=== PATIENT | male | born 1965 | race Caucasian/White ===

== ENCOUNTER 2018-05-29 08:49 | Emergency (ER) | payer OTHER ==
[~2018-05-29] VITALS: Ht 180.3 cm; Wt 76.2 kg
--- NOTE | 2018-05-29 09:17 | PHYS DOC ---
Adult General Chief Complaint Chief Complaint: HEAD INJURY/TRAUMA HPI HPI 52-year-old male presents to ER via POV following a mechanical fall this morning. Patient reports he was walking when he slipped on the ice causing him to fall backwards. Patient reports he struck the back of his head denies any loss of consciousness. He reports he has CASTANEDA denies tinnitis. He reports he felt dizzy after the fall which has since subsided. He denies nausea and has had no vomiting episode. Pt's family reports pt has had issues with repetitive questions and some forgetfulness- they report pt is NL on MS. Review of Systems Review of Systems Constitutional: Denies lethargy. Eyes: Denies change in visual acuity or eye pain [] HENT: Reports posterior head pain. Reports sinus congestion which had been occurring prior to fall- denies nosebleed Respiratory: Denies cough or shortness of breath [] Cardiovascular: Denies CP GI: Denies abdominal pain, nausea, vomiting : Denies dysuria or hematuria. Denies incontinence of bowel/bladder Musculoskeletal: Denies joint pain. Reports lt upper back pain just above scapula. Reports mid neck pain. Denies extremity pain Integument: Denies abrasions/lacerations/bruising Neurologic: Denies focal weakness or sensory changes. Denies dizziness. Pt's family denies pt with confusion/change in MS- they report pt has been "foggy" on recollection of events after fall. They report pt had some confusion on answers but feel pt has been NL on MS All other systems were reviewed and found to be within normal limits, except as documented in this note. Current Medications Current Medications Current Medications Medications (Trade) Dose Ordered Sig/Rose Start Time Stop Time Status Last Admin Dose Admin Acetaminophen (Tylenol) 1,000 mg 1X ONCE 05/29/18 10:15 05/29/18 10:16 DC 05/29/18 10:39 1,000 MG Methocarbamol (Robaxin) 750 mg 1X ONCE 05/29/18 11:00 05/29/18 11:01 DC 05/29/18 10:45 750 MG Oxymetazoline HCl (Afrin) 2 spray 1X ONCE 05/29/18 11:15 05/29/18 11:16 DC 05/29/18 11:22 2 SPRAY Allergies Allergies Allergies Coded Allergies Type Severity Reaction Last Updated Verified No Known Drug Allergies 05/29/18 No Physical Exam Physical Exam Constitutional: Well developed, well nourished, no acute distress, non-toxic appearance. Clear speech HENT: Normocephalic, tender to palp. posterior head- no visible injury/swelling/ ecchymosis, bilateral external ears normal, oropharynx moist, no oral injury, nose normal. [] Eyes: 3mm PERRLA, EOMI- no pain with eye movements, no nystagmus, conjunctiva normal, no discharge. [] Neck: Tender to palp. mid CSpine with no palp. deformity/step off- with this finding on initial exam pt had CCollar applied and CSpine precautions initiated , supple, no stridor. Trachea midline Cardiovascular: Heart rate regular rhythm, no murmur [] Lungs & Thorax: Bilateral breath sounds clear to auscultation. Resp. equal/ nonlabored. No chest wall tenderness Abdomen: Bowel sounds normal, soft, no tenderness Skin: Warm, dry Back: Tender to palp. lt upper back above scapula- no visible injury/deformity/ crepitus. No midline spinal tenderness/palp. deformity- full ROM, no CVA tenderness. Extremities: Pelvis stable/nontender. No tenderness, no cyanosis, no clubbing, ROM intact, no edema. No tenderness on palp. of coccyx Neurologic: Alert and oriented X 3, normal motor function, normal sensory function, no focal deficits noted. Layboy Tender equal Psychologic: Affect normal, judgement normal, mood normal. [] Current Patient Data Vital Signs EKG EKG [] Radiology/Procedures Radiology/Procedures PROCEDURE: SCAPULA LEFT Examination: CHEST AP ONLY, SCAPULA LEFT History: UPPER BACK PAIN FELL BACKWARDS ON ICE Comparison/Correlation: None Findings: Portable upright frontal view of the chest was obtained. Frontal view of the left scapula and scapular Y view were provided. Left costophrenic angle was not fully included limiting assessment. Heart size and pulmonary vasculature are normal. No infiltrate or effusion. Bony structures are unremarkable. No fracture or bony destruction. No pneumothorax. Acromioclavicular and glenohumeral joint relationships are normal. The left scapula is normal. Impression: No fracture. Consider further imaging if occult process is a persistent concern. No infiltrate. Electronically signed by: Baltazar Alves MD (05/29/2018 10:57 AM) [id number] DICTATED and SIGNED BY: BALTAZAR ALVES MD DATE: 05/29/18 1055 PROCEDURE: CT HEAD AND CERVICAL SPINE WO EXAM: CT HEAD WITHOUT IV CONTRAST CLINICAL HISTORY: fall-hit posterior head- head/neck pain COMPARISON: None. TECHNIQUE: Routine CT of the head without contrast. Soft tissues and bone windows were reviewed. PQRS compliance statement - One or more of the following individualized dose reduction techniques were utilized for this study: 1. Automated exposure control 2. Adjustment of the mA and/or kV according to patient size 3. Use of iterative reconstruction technique FINDINGS: There is no evidence of hemorrhage, mass or extra-axial fluid collection. Edwards-white differentiation is maintained with no evidence of edema. There is no mass effect or shift of the intracranial structures. The ventricles, basilar cisterns and cortical sulci are normal in size and configuration. The cerebellum and brainstem are unremarkable. The calvarium demonstrates no evidence of fracture or focal lesion. Mild right maxillary sinus mucosal thickening, sinusitis. Otherwise, there is normal aeration of the visualized paranasal sinuses and mastoid air cells. The visualized portions of the orbits are normal. IMPRESSION: 1. No evidence for acute intracranial process. 2. Mild right maxillary sinus mucosal thickening, likely sinusitis. EXAM: CT CERVICAL SPINE WITHOUT IV CONTRAST CLINICAL HISTORY: fall-hit posterior head- head/neck pain COMPARISON: None available. TECHNIQUE: Helical CT of the cervical spine was performed. Axial, coronal and sagittal reformatted images were also generated. PQRS compliance statement - One or more of the following individualized dose reduction techniques were utilized for this study: 1. Automated exposure control 2. Adjustment of the mA and/or kV according to patient size 3. Use of iterative reconstruction technique FINDINGS: Vertebral body heights are preserved. No evidence for acute fracture. Straightening of the normal cervical lordosis. No spondylolisthesis. Moderate C5-6 intervertebral disc height loss with subchondral endplate sclerosis. Mild biapical parenchymal lung pleural/parenchymal scarring. 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 C3-C4: No significant central canal stenosis or neural foraminal narrowing. C4-C5: Mild left uncovertebral hypertrophy results in mild left neural foraminal narrowing. No significant central canal stenosis or right neural foraminal narrowing. C5-C6: Small posterior disc osteophyte complex with uncovertebral hypertrophy and facet degenerative changes results in mild central canal stenosis, moderate left and mild right neural foraminal narrowing. C6-C7: No significant central canal stenosis or neural foraminal narrowing. C7-T1: No significant central canal stenosis or neural foraminal narrowing. IMPRESSION: No evidence for acute fracture or subluxation. Degenerative changes as described in detail above, most prominent at C5-6. Electronically signed by: Misael Fisher MD (05/29/2018 10:23 AM) [facility] DICTATED and SIGNED BY: MISAEL FISHER MD DATE: 05/29/18 1006 Course & Med Decision Making Course & Med Decision Making Pertinent Labs and Imaging studies reviewed. (See chart for details) 1030: Discussed CT results with no acute findings for fractures, hemorrhage, or acute traumatic injury. C-collar was removed and this provider. Patient remains alert and oriented �3 with no focal neuro deficits. Will provide patient with dose of Tylenol and Robaxin as patient reports he is having increased headache and muscle stiffness. 1128: Patient was ambulatory with staff at his side in the hallway. Patient had steady unassisted gait. Patient was overheard saying he was not dizzy or feeling lightheaded while walking. With patient having no acute findings on imaging and he reports he is not having any neurologic symptoms he reports he is wanting to be discharged home without further monitoring. Admission was discussed for pain care and monitoring however patient reports he has family who will be staying with him so he will not be alone. Patient states he is comfortable with home discharge and will follow up with his primary care physician with concerns. With patient preferring discharge since admission discharge instructions were discussed and education provided on signs and symptoms for him to return to ER for along with head injury precautions. Patient's family was at bedside during this discussion. Pt reports he has had improved symptoms following medications received in the ER. Will provide prescription for Robaxin and patient advised on use of Tylenol and or ibuprofen as needed for pain control. Staff Physician Addendum: I was working in the ER during the course of this patient's visit. I was available for consultation as needed, but I was not directly involved in the care of this patient. Faiza Disclaimer Dragon Disclaimer This electronic medical record was generated, in whole or in part, using a voice recognition dictation system. Departure Departure Impression: Primary Impression: Fall Additional Impressions: Head injury Back pain Disposition: HOME, SELF-CARE Condition: STABLE Patient Instructions: Back Pain, Adult, Concussion and Brain Injury, Fall Prevention and Home Safety, Head Injury, Adult Additional Instructions: Slow position changes to avoid falls. Tylenol and/or ibuprofen as needed for pain as directed on container. Ice pack to injured areas every 3-4 hours for 20-30 minutes at a time. If taking Robaxin do not drive or drink alcohol. If symptoms persist or with concerns follow-up with primary care physician for reevaluation and further care. You are being provided with educational information on concussions. Scripts Methocarbamol (ROBAXIN-750) 750 Mg Tablet 1 TAB PO BID PRN for PAIN, #10 TAB 0 Refills No driving or drinking while taking this medication Prov: ARNOLD DESAI APRN 05/29/18 Problem Qualifiers ARNOLD DESAI APRN May 29, 2018 09:17 SHON LEBRON MD Aug 30, 2018 02:15
[2018-05-29] MEDS ORDERED: ACETAMINOPHEN 500 MG TABLET PO ONE (10:15)
--- NOTE | 2018-05-29 10:28 | RAD ---
EXAM: CT HEAD WITHOUT IV CONTRAST CLINICAL HISTORY: fall-hit posterior head- head/neck pain COMPARISON: None. TECHNIQUE: Routine CT of the head without contrast. Soft tissues and bone windows were reviewed. PQRS compliance statement - One or more of the following individualized dose reduction techniques were utilized for this study: 1. Automated exposure control 2. Adjustment of the mA and/or kV according to patient size 3. Use of iterative reconstruction technique FINDINGS: There is no evidence of hemorrhage, mass or extra-axial fluid collection. Edwards-white differentiation is maintained with no evidence of edema. There is no mass effect or shift of the intracranial structures. The ventricles, basilar cisterns and cortical sulci are normal in size and configuration. The cerebellum and brainstem are unremarkable. The calvarium demonstrates no evidence of fracture or focal lesion. Mild right maxillary sinus mucosal thickening, sinusitis. Otherwise, there is normal aeration of the visualized paranasal sinuses and mastoid air cells. The visualized portions of the orbits are normal. IMPRESSION: 1. No evidence for acute intracranial process. 2. Mild right maxillary sinus mucosal thickening, likely sinusitis. EXAM: CT CERVICAL SPINE WITHOUT IV CONTRAST CLINICAL HISTORY: fall-hit posterior head- head/neck pain COMPARISON: None available. TECHNIQUE: Helical CT of the cervical spine was performed. Axial, coronal and sagittal reformatted images were also generated. PQRS compliance statement - One or more of the following individualized dose reduction techniques were utilized for this study: 1. Automated exposure control 2. Adjustment of the mA and/or kV according to patient size 3. Use of iterative reconstruction technique FINDINGS: Vertebral body heights are preserved. No evidence for acute fracture. Straightening of the normal cervical lordosis. No spondylolisthesis. Moderate C5-6 intervertebral disc height loss with subchondral endplate sclerosis. Mild biapical parenchymal lung pleural/parenchymal scarring. 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 C3-C4: No significant central canal stenosis or neural foraminal narrowing. C4-C5: Mild left uncovertebral hypertrophy results in mild left neural foraminal narrowing. No significant central canal stenosis or right neural foraminal narrowing. C5-C6: Small posterior disc osteophyte complex with uncovertebral hypertrophy and facet degenerative changes results in mild central canal stenosis, moderate left and mild right neural foraminal narrowing. C6-C7: No significant central canal stenosis or neural foraminal narrowing. C7-T1: No significant central canal stenosis or neural foraminal narrowing. IMPRESSION: No evidence for acute fracture or subluxation. Degenerative changes as described in detail above, most prominent at C5-6. Electronically signed by: Misael Romero MD (05/29/2018 10:23 AM) [facility]
[2018-05-29] MEDS ORDERED: METHOCARBAMOL 750 MG TABLET PO ONE (11:00)
--- NOTE | 2018-05-29 11:00 | RAD ---
Examination: CHEST AP ONLY, SCAPULA LEFT History: UPPER BACK PAIN FELL BACKWARDS ON ICE Comparison/Correlation: None Findings: Portable upright frontal view of the chest was obtained. Frontal view of the left scapula and scapular Y view were provided. Left costophrenic angle was not fully included limiting assessment. Heart size and pulmonary vasculature are normal. No infiltrate or effusion. Bony structures are unremarkable. No fracture or bony destruction. No pneumothorax. Acromioclavicular and glenohumeral joint relationships are normal. The left scapula is normal. Impression: No fracture. Consider further imaging if occult process is a persistent concern. No infiltrate. Electronically signed by: Baltazar Almanzar MD (05/29/2018 10:57 AM) [id number]
[2018-05-29] MEDS ORDERED: OXYMETAZOLINE 0.05% NASAL SPRAY 30ML BOTTLE. NS ONE (11:15)
[2018-05-29 11:23] VITALS: BP 123/75
[2018-05-29] MEDS ORDERED: METH-38 PO (11:29)
== END 2018-05-29 11:41 | disposition home or self-care (01) ==
LOC: ER 08:49
DX: S09.90XA Unspecified injury of head, initial encounter (principal); R51 Headache; M54.6 Pain in thoracic spine; M25.512 Pain in left shoulder; R09.81 Nasal congestion; R41.0 Disorientation, unspecified; W00.0XXA Fall on same level due to ice and snow, initial encounter; Y93.01 Activity, walking, marching and hiking; Y92.89 Other specified places as the place of occurrence of the external cause; Y99.8 Other external cause status
CPT/HCPCS: 70450; 71045; 72125; 73010; 99284-25

== ENCOUNTER → 2019-05-06 | Outpatient (CLI) | payer OTHER ==
[~2019-05-06] MED LIST: METH-38 PO
--- NOTE | 2019-05-06 13:33 | KCIC ---
MR of the left shoulder HISTORY: Left shoulder pain. Rotator cuff arthropathy. Decreased range of motion for 5 months. TECHNIQUE: Routine multiplanar sequences are obtained. FINDINGS: The acromioclavicular joint is intact. No evidence of rotator cuff tear. No significant subdeltoid bursal effusion. No significant glenohumeral joint effusion. Limited labrum exam due to motion degradation but there does appear to be a posterosuperior labral tear. No acute articular cartilage defect. Biceps tendon intact. Defect at the anterosuperior labrum and a thick cordlike middle glenohumeral ligament, compatible with a Ghassan complex, a normal variant. No acute fracture. No aggressive bone destruction. No acute soft tissue abnormality. IMPRESSION: 1. Tear of the posterosuperior labrum. 2. No evidence of rotator cuff tear. Electronically signed by: Law Hanks MD (05/06/2019 1:30 PM) [facility]
== END | disposition home or self-care (01) ==
LOC: KCIC MRI 12:10
PROVIDERS: ATTEND Family Medicine
DX: S43.492A Other sprain of left shoulder joint, initial encounter (principal); X58.XXXA Exposure to other specified factors, initial encounter; Y93.9 Activity, unspecified; Y92.89 Other specified places as the place of occurrence of the external cause; Y99.8 Other external cause status
CPT/HCPCS: 73221

== ENCOUNTER → 2019-08-05 | Outpatient (CLI) | payer OTHER ==
--- NOTE | 2019-08-05 14:16 | KCIC ---
Limited sonogram of the pelvis-right groin Clinical indications: Mass of the right inguinal region. FINDINGS: High-resolution sonography of the right groin was performed with and without Valsalva maneuvers. There is a right inguinal hernia containing fat. No definite bowel loop is seen in this area. The opening of the hernia sac is 13 mm. The hernia sac measures 32 mm in length. IMPRESSION: Right inguinal hernia. Electronically signed by: Bolivar Das MD (08/05/2019 2:13 PM) [facility] [place]
== END | disposition home or self-care (01) ==
LOC: KCIC US 12:18
PROVIDERS: ATTEND Family Medicine
DX: K40.90 Unilateral inguinal hernia, without obstruction or gangrene, not specified as recurrent (principal)
CPT/HCPCS: 76882

== ENCOUNTER → 2019-11-14 | Outpatient (CLI) | payer OTHER ==
[~2019-11-14] MED LIST changes: +OMEG100021 PO; +VITA1TAB3 PO
== END | disposition home or self-care (01) ==
LOC: LAB 14:10
PROVIDERS: ATTEND Surgery
DX: Z11.59 Encounter for screening for other viral diseases (principal)
CPT/HCPCS: U0003-CS

== ENCOUNTER 2019-11-18 08:02 | Day surgery (SDC) | payer OTHER ==
[~2019-11-18] VITALS: Ht 180.3 cm; Wt 77.0 kg
[~2019-11-18 08:02] MED LIST changes: +BACITRACIN 50,000 UNIT in IV NORMAL SALINE 500ML BAG 500 ML IRR ONE; +HYDROmorphone 2 MG/ML VIAL IV PRN; +IV RINGERS,LACTATED 1000ML 1,000 ML IV SCH; +LIDOCAINE 1% PF 2 ML VIAL. ID PRN; +MORPHINE SULFATE 2 MG/ML VIAL. IV PRN; -OMEG100021 PO; +ONDANSETRON PF 4 MG/2 ML VIAL. IV PRN; +PROCHLORPERAZINE 10 MG/2 ML VIAL. IV PRN; -VITA1TAB3 PO; +fentaNYL PF VIAL 100 MCG/2 ML VIAL IV PRN
[2019-11-18] MEDS ORDERED: OMEG100021 PO (08:33)
[2019-11-18] MEDS ORDERED: VITA1TAB3 PO (08:33)
[2019-11-18] MEDS ORDERED: SEVOFLURANE 61 TO 120 MINUTES. IH ONE (09:17)
[2019-11-18] MEDS ORDERED: LIDOCAINE 2% PF 5 ML VIAL. ONE (09:17)
[2019-11-18] MEDS ORDERED: DEXAMETHASONE SOD PHOS 4 MG/ML VIAL ONE (09:17)
[2019-11-18] MEDS ORDERED: PROPOFOL 10 MG/ML (20ML) VIAL. IV ONE (09:17)
[2019-11-18] MEDS ORDERED: ONDANSETRON PF 4 MG/2 ML VIAL. ONE (09:17)
[2019-11-18] MEDS ORDERED: fentaNYL PF VIAL 100 MCG/2 ML VIAL ONE (09:20)
[2019-11-18] MEDS ORDERED: MIDAZOLAM HCL/PF 2 MG/2 ML VIAL. ONE (09:20)
[2019-11-18] MEDS ORDERED: BUPIVACAINE-EPI 0.5%-1:200000 MPF 30 ML VIAL. ONE (09:22)
[2019-11-18] MEDS ORDERED: BUPIVACAINE-EPI 0.5%-1:200000 MPF 30 ML VIAL. INJ ONE (10:20)
[2019-11-18] MEDS ORDERED: PHENYLEPHRINE in 0.9% NACL PF 1 MG/10 ML SYRINGE. IV ONE (10:23)
--- NOTE | 2019-11-18 11:03 | PDOC4 ---
Operative Note Operative Note Operative Note: Preoperative Diagnosis: Right inguinal hernia Postoperative Diagnosis: Same Procedure: Right inguinal hernia repair with mesh Surgeon: Reese Clinical Research Associate: Artemio PENN Anesthesia: Gen EBL: 10 ml Specimen: None Drains: None Complications: None Indication: The patient is a 54 year old male who was referred with a right inguinal hernia. He was offered surgical repair. The risks of surgery were discussed with include bleeding, infection, recurrence, pain, anesthetic risk, potential need for additional surgery or procedure. He understands and would like to proceed. Description: The patient was taken to the operating room and placed supine on the operating table. General anesthesia was performed. The right groin was shaved and prepped with chloroprep and draped in a standard surgical manner. An incision was made in the R groin with a scalpel. Cautery dissection was carried down to the external oblique aponeurosis. The aponeurosis was opened to the external ring. The contents of the inguinal canal were encircled with a paige drain. The vas deferens and other cord structures were preserved. The patient had a small direct hernia defect. The attenuated transfersalis was opened entering the preperitoneal space. The defect was filled with an extra large Phasix mesh plug. The plug was sutured into position with 2-0 vicryl. The entire inguinal floor was reinforced with a moscoso hold prolene mesh patch. The patch was also sutured into position with 2-0 vicryl. Upon completion the patch rested well providing full coverage of the inguinal floor. The external was closed over the mesh with 2-0 vicryl. The subcutaneous tissue was closed with 3-0 vicryl and the skin was closed with 4-0 monocryl. The skin was infiltrated with 0.5% Marcaine and steristrips and a dressing were applied. The patient tolerated the procedure well and was sent to the PACU in stable condition. At the end of the case all counts were correct. MAYRA COBOS MD Nov 18, 2019 11:03
--- NOTE | 2019-11-18 11:08 | DISCH ---
DISCHARGE INSTRUCTIONS Condition on Discharge Condition on Discharge: Stable Activity After Discharge Activity Instructions for Disc: Other, see below (No lifting over 20 lbs, s trenuous activity for 4 weeks) Driving Instructions after Dis: Other, see below (no driving while taking pain meds) Diet after Discharge Diet after Discharge: Regular Wound Incision Care Wound/Incision Care: Other, see below (keep dressing clean and dry X 72 hours, may then remove and shower) Follow-Up Follow up with: Dr Cobos in office in 2 weeks, call for appt [phone] MAYRA COBOS MD Nov 18, 2019 11:08
[2019-11-18] MEDS ORDERED: oxyCODONE/APAP 5/325 1 TAB TABLET PO ONE ×2 (11:30)
[2019-11-18] MEDS ORDERED: KETOROLAC 30 MG/ML VIAL. IVP ONE (12:00)
[2019-11-18 13:35] VITALS: BP 135/73
== END 2019-11-18 13:42 | disposition home or self-care (01) ==
LOC: SURG 08:02
PROVIDERS: ATTEND Surgery
DX: K40.90 Unilateral inguinal hernia, without obstruction or gangrene, not specified as recurrent (principal); Z98.890 Other specified postprocedural states
CPT/HCPCS: 49505; A7015; C1781; J1100; J1885; J2250; J2370; J2405; J2704; J3010; J3490; J7040; J7120; J0690

== ENCOUNTER → 2020-03-11 | Outpatient (CLI) | payer OTHER ==
[~2020-03-11] MED LIST changes: -BACITRACIN 50,000 UNIT in IV NORMAL SALINE 500ML BAG 500 ML IRR ONE; -HYDROmorphone 2 MG/ML VIAL IV PRN; +IOHEXOL 240 MG/ML 50ML VIAL. PO ONE; +IOHEXOL 300 MG/ML 100ML VIAL. IV ONE; -IV RINGERS,LACTATED 1000ML 1,000 ML IV SCH; -LIDOCAINE 1% PF 2 ML VIAL. ID PRN; +LORA10TA3 PO; -MORPHINE SULFATE 2 MG/ML VIAL. IV PRN; +OMEG100021 PO; -ONDANSETRON PF 4 MG/2 ML VIAL. IV PRN; -PROCHLORPERAZINE 10 MG/2 ML VIAL. IV PRN; +VITA1TAB3 PO; -fentaNYL PF VIAL 100 MCG/2 ML VIAL IV PRN
--- NOTE | 2020-03-11 17:39 | KCIC ---
EXAM: CT Pelvis with IV contrast INDICATION: Reason: Rt inguinal hernia repair November 2019, felt bulge last week. / Spl. Instructions: 89m Omni 300 / History: TECHNIQUE: Multi-detector row images were acquired from the iliac crest through the lesser trochanters with the use of IV contrast. Sagittal and coronal images were acquired from the transaxial data. All CT scans performed at this facility utilize dose optimization techniques as appropriate to the exam, including the following: Automated exposure control and adjustment of the mA and/or KV according to patient size (this includes techniques or standardized protocols for targeted exams where dose is indication/reason for exam). IV CONTRAST: Administered ORAL CONTRAST: Administered COMPARISON: None FINDINGS: BLADDER: The urinary bladder is partially distended and shows indentation in the right anterolateral aspect of the bladder wall where it abuts soft tissue presumably reflecting inguinal hernia repair surgical material. This lies medial to the hypogastric vessels and could reflect a direct hernia repair. However, fatty soft tissue is present in the bilateral groins lateral to the inguinal canals, extending from the extrahepatic peritoneal pelvic fat. On the right, this slightly deforms the medial wall of the right femoral vein (image 36 of series 2). On the left, there is some anterior deformity of the femoral vein by fatty tissue that appears to communicate with the fatty mass in the left groin (image 38 of series 2). REPRODUCTIVE ORGANS: Prostate measures 4.2 cm in diameter. BOWEL: Included bowel shows extensive colonic diverticulosis without CT findings suspicious for acute diverticulitis. MESENTERY/PERITONEUM/RETROPERITONEUM: Unremarkable VASCULAR: Unremarkable LYMPH NODES: No adenopathy OSSEOUS & SOFT TISSUES: Unremarkable IMPRESSION: Postoperative changes suggesting previous repair of a right direct inguinal hernia and additional findings suggesting a fat-containing right femoral hernia on possible fat-containing left femoral hernia as well. No involved bowel. Electronically signed by: Nathen Enriquez MD (03/11/2020 5:36 PM) [id number]
== END ==
LOC: KCIC CT 13:23
PROVIDERS: ATTEND Surgery
DX: K40.90 Unilateral inguinal hernia, without obstruction or gangrene, not specified as recurrent (principal); K57.30 Diverticulosis of large intestine without perforation or abscess without bleeding; N32.89 Other specified disorders of bladder
CPT/HCPCS: 72193; Q9966; Q9967

== ENCOUNTER → 2020-03-31 | Outpatient (CLI) | payer OTHER ==
[~2020-03-31] MED LIST changes: -IOHEXOL 240 MG/ML 50ML VIAL. PO ONE; -IOHEXOL 300 MG/ML 100ML VIAL. IV ONE; +OXYC1TAB15 PO
== END ==
LOC: LAB 14:07
PROVIDERS: ATTEND Surgery
DX: Z01.812 Encounter for preprocedural laboratory examination (principal); K41.90 Unilateral femoral hernia, without obstruction or gangrene, not specified as recurrent; Z20.828 Contact with and (suspected) exposure to other viral communicable diseases
CPT/HCPCS: U0003

== ENCOUNTER 2020-04-03 07:36 | Day surgery (SDC) | payer OTHER ==
[~2020-04-03] VITALS: Ht 180.3 cm; Wt 76.7 kg
[~2020-04-03 07:36] MED LIST changes: +BUPIVACAINE-EPI 0.25%-1:200000 MPF 30 ML VIAL. INJ ONE; +HYDROmorphone 2 MG/ML VIAL IV PRN; +IV RINGERS,LACTATED 1000ML 1,000 ML IV SCH; +LIDOCAINE 1% PF 2 ML VIAL. ID PRN; +ONDANSETRON PF 4 MG/2 ML VIAL. IV PRN; -OXYC1TAB15 PO; +PROCHLORPERAZINE 10 MG/2 ML VIAL. IV PRN; +fentaNYL PF VIAL 100 MCG/2 ML VIAL IV PRN
[2020-04-03] MEDS ORDERED: ACETAMINOPHEN 500 MG TABLET PO ONE ×2 (07:53→09:15)
[2020-04-03] MEDS ORDERED: LIDOCAINE 2% PF 5 ML VIAL. ONE (08:43)
[2020-04-03] MEDS ORDERED: PROPOFOL 10 MG/ML (20ML) VIAL. IV ONE (08:43)
[2020-04-03] MEDS ORDERED: ONDANSETRON PF 4 MG/2 ML VIAL. ONE (08:45)
[2020-04-03] MEDS ORDERED: DEXAMETHASONE SOD PHOS 4 MG/ML VIAL ONE (08:45)
[2020-04-03] MEDS ORDERED: ROCURONIUM 50 MG/5 ML VIAL. ONE (08:45)
[2020-04-03] MEDS ORDERED: fentaNYL PF VIAL 100 MCG/2 ML VIAL ONE ×2 (08:46→11:18)
[2020-04-03] MEDS ORDERED: MIDAZOLAM HCL/PF 2 MG/2 ML VIAL. ONE (08:46)
[2020-04-03] MEDS ORDERED: MINERAL OIL for SURGERY 10 ML VIAL. MC ONE (09:26)
[2020-04-03] MEDS: ceFAZolin SODIUM IV Push 1 GM VIAL. IVP PRN (09:34)
[2020-04-03] MEDS ORDERED: SEVOFLURANE 61 TO 120 MINUTES. IH ONE (10:00)
[2020-04-03] MEDS ORDERED: KETOROLAC 30 MG/ML VIAL. ONE (10:50)
[2020-04-03] MEDS ORDERED: GLYCOPYRROLATE 1 MG/5 ML VIAL. ONE ×2 (10:50→14:18)
[2020-04-03] MEDS ORDERED: NEOSTIGMINE 10 MG/10 ML VIAL. ONE (10:50)
--- NOTE | 2020-04-03 11:00 | PDOC4 ---
Operative Note Operative Note Date: April 03, 2020 at 1056 Preoperative diagnosis: Right femoral hernia possible left femoral hernia Postoperative diagnosis: Right femoral hernia and left femoral hernia Procedure: Robotic assisted laparoscopic bilateral femoral hernia repairs with mesh Surgeon: John Specimen: None Dictation: Patient is a 54-year-old gentleman who had a right inguinal hernia repaired about 6 months ago developed a bulge below this repair CT scan was done which showed a right femoral hernia with incarcerated fat as well as a left femoral hernia. The procedure of robotic assisted laparoscopic femoral hernia repairs with mesh was explained to the patient detail risk benefits were also discussed including bleeding infection injury to intra-abdominal contents possible necessitating further or open operations alternatives to this procedure also discussed with the patient who seemed to understand and gave both verbal and written consent to have the procedure performed. Patient was taken to the operating room placed in the supine position general anesthesia was initiated once patient was sleeping intubated placed in low lithotomy positioning and his abdomen was prepped and draped usual sterile fashion using ChloraPrep. An area just above the umbilicus was injected with quarter percent Marcaine with epinephrine incision was made 11 blade scalpel and a varies needle was placed within the abdomen creating pneumoperitoneum once this complete 8 mm da Peace port was placed in the da Peace camera was placed within the abdomen which was inspected was noted on the right to have a femoral hernia as well as on the left. 8 mm da Peace port was placed in the right midabdomen and an 8 mm da Peace port was placed in the left midabdomen. Surgeon went to the robotic console using a grasper and Endo Kirby scissors the peritoneum over the right side was incised a window was propagated inferiorly down to the hernia defect on the right side there was quite a bit of fat incarcerated within this hernia defect which was reduced. Tensions were then turned to the left side where the peritoneum was and again incised with electrocautery scissors and a flap propagated posteriorly reducing the hernia contents of the femoral hernia on the left side. A medium sized Bard 3D max for the left was placed this was placed over the hernia defect and the peritoneum was closed over the mesh with a running 20V lock nonabsorbable suture. Attention was then turned to the right side again a 3D max medium Bard mesh for the right was placed over the hernia defect and the peritoneum closed again with a 2 OV lock absorbable suture. The robot was undocked from all port sites pneumoperitoneum reduced all ports were removed the port sites were closed for subcuticular Monocryl Mastisol Steri- Strips and island dressings were applied. Patient was awakened and extubated in the operating room taken to recovery in stable condition all sponge instrument needle counts listed as correct estimated blood loss 5 mL CARINA HAYDEN MD Apr 03, 2020 11:00
--- NOTE | 2020-04-03 11:02 | DISCH ---
DISCHARGE INSTRUCTIONS Condition on Discharge Condition on Discharge: Stable Activity After Discharge Activity Instructions for Disc: Avoid exertion, Other, see below Other activity instructions: No lifting more than 20 pounds for 2 weeks [address] Instructions after Dis: Other, see below Diet after Discharge Diet after Discharge: Regular Wound Incision Care Other wound/incision instructi: May shower in 24 hours Contacting the after DC Call your doctor for: If your condition worsens Follow-Up Follow up with: Dr. Hayden in 2 weeks CARINA HAYDEN MD Apr 03, 2020 11:02
[2020-04-03] MEDS: fentaNYL PF VIAL 100 MCG/2 ML VIAL IV PRN ×2 (11:26→11:41)
[2020-04-03] MEDS ORDERED: OXYC1TAB15 PO (11:27)
[2020-04-03] MEDS ORDERED: oxyCODONE/APAP 5/325 1 TAB TABLET PO PRN (11:45)
[2020-04-03] MEDS ORDERED: oxyCODONE/APAP 5/325 1 TAB TABLET PO ONE (11:45)
[2020-04-03] MEDS ORDERED: MORPHINE SULFATE 2 MG/ML VIAL. ONE (12:14)
[2020-04-03] MEDS: MORPHINE SULFATE 2 MG/ML VIAL. IV PRN ×2 (12:16→12:31)
[2020-04-03 15:00] VITALS: BP 124/67
== END 2020-04-03 15:35 | disposition home or self-care (01) ==
LOC: SURG 07:36
PROVIDERS: ATTEND Surgery
DX: K41.00 Bilateral femoral hernia, with obstruction, without gangrene, not specified as recurrent (principal); Z79.899 Other long term (current) drug therapy; Z98.890 Other specified postprocedural states; Z72.89 Other problems related to lifestyle
CPT/HCPCS: 49659; C1781; J0690; J1100; J1885; J2250; J2270; J2405; J2704; J2710; J3010; J3490; J7120; S2900